=== PATIENT | female | born 1970 | race Asian ===

== ENCOUNTER 2018-05-28 18:15 | Emergency (ER) | payer BC ==
[~2018-05-28] VITALS: Ht 167.6 cm; Wt 102.5 kg
[2018-05-28 20:19] VITALS: BP 152/94
== END 2018-05-28 20:19 | disposition home or self-care (01) ==
LOC: ED 18:15
DX: I10 Essential (primary) hypertension (principal); E11.9 Type 2 diabetes mellitus without complications; S61.412A Laceration without foreign body of left hand, initial encounter; W26.0XXA Contact with knife, initial encounter; Y93.89 Activity, other specified; Y92.89 Other specified places as the place of occurrence of the external cause; Y99.8 Other external cause status
CPT/HCPCS: J2001